=== PATIENT | male | born 1965 | race Caucasian/White ===

== ENCOUNTER 2017-06-24 03:13 | Emergency (ER) | payer BC ==
[~2017-06-24] VITALS: Ht 167.6 cm; Wt 130.7 kg
[2017-06-24 03:17] VITALS: Ht 167.6 cm; Wt 130.7 kg
[2017-06-24 07:20] VITALS: BP 116/89
== END 2017-06-24 07:20 | disposition home or self-care (01) ==
LOC: ED 03:13
DX: H16.002 Unspecified corneal ulcer, left eye (principal)